=== PATIENT | female | born 1940 | race Asian ===

== ENCOUNTER → 2016-05-04 | Outpatient (CLI) | payer OTHER ==
[~2016-05-04] MED LIST: ASPIRIN PO; B-COMPLEX W-VIT1 TAB PO; FAMOTIDINE PO; LORTAB 5/500 TA1 TA1 PO; LOSARTAN POTASS25 MG PO; SUPER B COMPLEX1 CAP PO; ZOCOR PO
--- NOTE | ~2016-05-04 | MY11 ---
[facility] A Service of [facility] & [facility] RADIOLOGY TEXT RESULTS PATIENT: SARA ZENGCHIDI LOCATION: [facility] : 44 UNIT #: [id number] AGE: [address]: Pernell Scruggs MD SEX: F ORDER DR: [id number] [facility] [address] [place], [place] [address] [id number] O MR#: [id number] Acc #: [id number] NAME: SARACHIDI : 1940 SEX: F STUDY DATE/TIME: 05/04/2016 15:54 UNIT: [facility] ROOM: STUDY DESCRIPTION: MY Mammogram Screening Dig [facility] Attending Physician: Pernell Scruggs M.D. Referring Physician: Pernell Scruggs M.D. Ordering Physician: Pernell Scruggs M.D. Primary Care Physician: Pernell Scruggs M.D. MEDICAL IMAGING REPORT This report is preliminary unless electronic signature is present EXAM Screening mammogram 05/04/2016 INDICATION 75-year-old with no personal or family history of breast cancer. No current complaints. FINDINGS Routine digital screening views of both breasts were obtained. Study is reviewed with an FDA-approved CAD device. Comparison made with 05/04/2015, 03/13/2014. Breast parenchyma shows scattered fibroglandular densities. No new masses or suspicious microcalcifications are seen. Biopsy marker in the left breast unchanged. Bilateral benign calcifications are stable. IMPRESSION Benign mammogram. Routine screen in 1 year recommended. Patients over the age of 40 are entered into a reminder system with target due date for the next mammogram. A result letter will also be sent to the patient. BIRADS: 2 Benign finding Dictated by... Shaka Gurrola Jr., M.D. THIS IS AN ELECTRONICALLY VERIFIED REPORT Shaka Gurrola Jr., M.D. at 05/05/2016 4:52 PM GISSEL/leonel TD: 05/05/2016 12:44 STS. [facility] A Service of [facility] & [facility] RADIOLOGY TEXT RESULTS PATIENT: SARA ZENG,CHIDI Armstrong LOCATION: [facility] #: [id number] : 44 UNIT #: [id number] AGE: [address]: Pernell Scruggs MD SEX: F ORDER DR: JOB #: [id number] MEDICAL IMAGING REPORT COPY
== END | disposition home or self-care (01) ==
LOC: CWCC 15:26
DX: Z12.31 Encounter for screening mammogram for malignant neoplasm of breast (principal)
CPT/HCPCS: G0202